=== PATIENT | male | born 1945 | race Caucasian/White ===

== ENCOUNTER → 2017-05-12 | Outpatient (CLI) | payer BC ==
[~2017-05-12] MED LIST: ADULT LOW DOSE81 MG PO; CHOLESTEROL MED; CRESTOR10 MG PO; EFFIENT10 MG PO; FERROUS GLUCON325 M4 PO; HTN MED; LIPITOR20 MG PO; LOPRESSOR 50 MG50 M1 PO; LORTAB 5 MG/5001 TA1 PO; NITROGLYCERIN0.4 MG SL; PERCOCET 5-3251 EACH PO; TOPROL XL50 MG PO
--- NOTE | 2017-05-12 13:32 | EXE ---
[place] [address] STRESS ECHOCARDIOGRAM Name: KELSI PADILLA Kaitlin Room: [facility]#: [id number] Admission: 05/12/17 Attend Phys: Papito Arriola MD Discharge: Date of : 41 Date of Service: 05/12/17 1332 Report #: [id number] THIS REPORT FOR: //name// APPROVED REPORT Exam: Dobutamine Stress Echo Indication: CAD Patient Location: Out-Patient Stress Nurse: Alicia Kamara RN Supervising Physician: Papito Arriola MD Status: routine Ht: 5 ft 10 in HR: 60 bpm BP: 137/79 mmHg Medical History Medical History: CAD s/p CABG Cardiac Risk Factors: HTN, Hyperlipidemia Procedure The patient underwent a Pharmacological Stress Test using Dobutamine. Blood pressure, heart rate, and EKG were monitored. An Echocardiogram was performed by chemical lab technician in four stages in quad fashion. At peak stress, four selected images were obtained and placed side by side with resting images for comparison. Stress Test Details Stress Test: Pharmacological Stress Test using Dobutamine. Reason for pharmacologic stress test: physical limitation. HR Resting HR: 60 bpm Max Heart Rate (APMHR): 146 bpm Max HR Achieved: 130 bpm Target HR (85% APMHR): 124 bpm % of APMHR: 89 Recovery HR: 86 bpm HR response to stress: Normal HR response to stress BP Resting BP: 137/79 mmHg Max BP: 148/103 mmHg Recovery BP: 159/86 mmHg ECG Resting ECG: Sinus Rhythm, RBBB Stress ECG: Sinus Rhythm, [place] [address] STRESS ECHOCARDIOGRAM Name: RANDYKELSI J Room: [facility]#: [id number] Admission: 05/12/17 Attend Phys: Papito Arriola MD Discharge: Date of : 41 Date of Service: 05/12/17 1332 Report #: [id number] Maximum ST Deviation: 0 mm Arrhythmia: VPC's Recovery ECG: Sinus Rhythm, RBBB Recovery ST Deviation: 0 mm Recovery Arrhythmia: VPC Clinical Reason for Termination: Completed protocol Pre-Stress Echo The resting Echocardiogram showed normalabnormal left ventricular contractility with an estimated Ejection Fraction of about 50-55%. The resting Echocardiogram demonstrated wall motion abnormality in the basal inferior wall. moderate hypokinesis Post-Stress Echo The stress Echocardiogram showed abnormal left ventricular contractility with an estimated Ejection Fraction of about 65-70%. The stress Echocardiogram demonstrated wall motion abnormality in the inferior wall. mild hypokinesis Conclusion Clinical Response: Non-ischemic Stress ECG Response: Indeterminant Stress Echo Images: Non-ischemic low risk stress echo for future cardiac events Other Information Study Quality: Good <Conclusion> low risk stress echo for future cardiac events <ELECTRONICALLY SIGNED> By: Papito Arriola MD, FACC 05/12/171331 31 31 Papito Arriola MD, FACC /INF
== END ==
LOC: M.ULTRA 04-28 11:34 → M.CRD 11:00
DX: I25.10 Atherosclerotic heart disease of native coronary artery without angina pectoris (principal); G45.9 Transient cerebral ischemic attack, unspecified; R09.89 Other specified symptoms and signs involving the circulatory and respiratory systems

== ENCOUNTER → 2020-01-29 | Outpatient (CLI) | payer BC ==
--- NOTE | 2020-01-29 15:11 | 2DMMODE ---
[place] [address] 2 D/M-MODE ECHOCARDIOGRAM Name: KELSI PADILLA Kaitlin Room: [facility]#: [id number] Admission: 01/29/20 Attend Phys: Juan M Rodrigues, Discharge: Date of : 41 Date of Service: 01/29/20 1510 Report #: [id number] THIS REPORT FOR: cc: KEMI VAUGHAN MD, CHADWICK MD Blick, David R. MD [facility] ~ APPROVED REPORT Study performed: 01/29/2020 13:22:28 EXAM: Comprehensive 2D, Doppler, and color-flow Echocardiogram Patient Location: Out-Patient BSA: 2.01 HR: 76 bpm BP: 145/88 mmHg Other Information Study Quality: Fair Indications CAD 2D Dimensions IVSd: 14.53 (7-11mm) LVOT Diam: 20.36 (18-24mm) LVDd: 50.70 mm PWd: 12.02 (7-11mm) Ascending Ao: 32.37 (22-36mm) LVDs: 34.73 (25-40mm) Aortic Root: 35.30 mm Volumes Left Atrial Volume (Systole) LA ESV Index: 28.80 mL/m2 Aortic Valve AoV Peak Сергей.: 1.27 m/s AO Peak Gr.: 6.46 mmHg LVOT Max P.01 mmHg AO Mean Gr.: 3.85 mmHg LVOT Mean P.99 mmHg LVOT Max V: 1.00 m/s AO V2 VTI: 25.49 cm LVOT Mean V: 0.65 m/s RDAHA (VTI): 2.72 cm2 LVOT V1 VTI: 21.26 cm Mitral Valve E/A Ratio: 0.83 [place] [address] 2 D/M-MODE ECHOCARDIOGRAM Name: KELSI PADILLA Room: [facility]#: [id number] Admission: 01/29/20 Attend Phys: Juan M Rodrigues, Discharge: Date of : 41 Date of Service: 01/29/20 1510 Report #: [id number] MV Decel. Time: 242.42 ms MV E Max Сергей.: 0.77 m/s MV PHT: 70.30 ms MVA (PHT): 3.13 cm2 TDI E/Lateral E': 6.42 E/Medial E': 9.63 Medial E' Сергей.: 0.08 m/s Lateral E' Сергей.: 0.12 m/s Pulmonary Valve PV Peak Сергей.: 0.97 m/s PV Peak Gr.: 3.79 mmHg Tricuspid Valve RAP Estimate: 5.00 mmHg TR Peak Gr.: 31.35 mmHg RVSP: 36.35 mmHg PA Pressure: 36.35 mmHg Left Ventricle The left ventricle is normal size. There is normal LV segmental wall motion. Mild concentric left ventricular hypertrophy. Left ventricular systolic function is normal. The left ventricular ejection fraction is within the normal range. LVEF is 50-55%. Grade I - abnormal relaxation pattern. Right Ventricle The right ventricle is normal size. The right ventricular systolic function is normal. Atria Left atrium is mildly dilated. The right atrium size is normal. Aortic Valve The aortic valve is normal in structure. Trace aortic regurgitation. There is no aortic valvular stenosis. Mitral Valve The mitral valve is normal in structure. There is no mitral valve regurgitation noted. No evidence of mitral valve stenosis. Tricuspid Valve The tricuspid valve is normal in structure. Mild tricuspid regurgitation. estimated pa pressure 40 [place] [address] 2 D/M-MODE ECHOCARDIOGRAM Name: KELSI PADILLA Kaitlin Room: [facility]#: [id number] Admission: 01/29/20 Attend Phys: Juan M Rodrigues, Discharge: Date of : 41 Date of Service: 01/29/20 1510 Report #: [id number] The pulmonary valve is normal in structure. There is no pulmonic valvular regurgitation. Great Vessels The aortic root is normal in size. IVC is normal in size and collapses >50% with inspiration. Pericardium There is no pericardial effusion. <Conclusion> Mild concentric left ventricular hypertrophy. LVEF is 50-55%. Left atrium is mildly dilated. Mild tricuspid regurgitation. estimated pa pressure 40 mm hg <ELECTRONICALLY SIGNED> By: Papito Arriola MD, FACC 01/29/201509 09 09 Papito Arriola MD, FACC /INF
--- NOTE | 2020-01-30 08:01 | CARDNUC ---
[place] [address] CARDIAC NUCLEAR IMAGING REPORT Name: RANDYKELSI Kaitlin Room: [facility]#: [id number] Admission: 01/29/20 Attend Phys: Juan M Rodrigues, Discharge: Date of : 41 Date of Service: 01/30/20 0801 Report #: [id number] THIS REPORT FOR: cc: KEMI VAUGHAN MD, CHADWICK MD Liston, Michael J. MD [facility] ~ APPROVED REPORT Study performed: 01/29/2020 14:40:29 Exam: Nuclear Stress Test Indication: Abnormal EKG, Pre-Op clearance. Patient Location: Out-Patient Stress Tech: Elena Gandara Stress Nurse: Lorenza Bustos R.N. NM Tech:MELIA Rea Ht: 5 ft 9 in Wt: 187 lbs BSA: 2.01 m2 BMI: 27.61 Medical History Medical History: ABN EKG, RBBB, SB, PVC's, Carotid Bruit, Knee pain pending surgery, CAD s/p ME, CAD s/p CABG, CAD s/p stent, HTN, Hyperlipidemia, former smoker, uses cane to ambulate/stability. Medications: Amlodipine, ASA 81 Mg, Lisinopril, Metoprolol Tartrate, Rosuvastatin. Allergies: No known drug allergies Cardiac Risk Factors: Age, FHX of CAD, HTN, Hyperlipidemia, Past Smoker, RBBB, Carotid Bruit, SB, PVC's. Previous Cardiac Procedures: Myocardial infarction, CABG, PCI. Pretest Chest Pain Characteristics: No chest pain Exercise History: Sedentary Physical Disabilities: Knee pain pending surgery, uses cane to ambulate/stabillity. Meds Held (24 hrs): Metoprolol Tartrate. Stress Test Details Stress Test: Pharmacologic stress testing performed using 0.4 mg of regadenoson per 5 mL given IV over 10 seconds. Reason for pharmacologic stress test: Knee pain pending surgery, uses cane to ambulate/[place] [address] CARDIAC NUCLEAR IMAGING REPORT Name: KELSI PADILLA Room: [facility]#: [id number] Admission: 01/29/20 Attend Phys: Juan M Rodrigues, Discharge: Date of : 41 Date of Service: 01/30/20 0801 Report #: [id number] Resting HR: 75 bpm Max Heart Rate (APMHR): 143 bpm Max HR Achieved: 113 bpm Target HR (85% APMHR): 121 bpm % of APMHR: 79 Recovery HR: 94 bpm BP Resting BP: 161/82 mmHg Max BP: 177/89 mmHg ECG Resting ECG: Sinus Rhythm, RBBB Stress ECG: Sinus tachycardia, RBBB ST Change: None Arrhythmia: VPC's Recovery ECG: Sinus Rhythm Recovery ST Change: None Recovery Arrhythmia: VPC's Clinical Reason for Termination: Completed protocol Stress Symptoms: No symptoms voiced. Exercise duration: 00 min 00 sec Exercise capacity: 1.00 METs Patient tolerated Lexiscan infusion without significant cardiac symptoms. Nurse Comments A 75 year old male presented for a sitting Lexiscan r/t ABN EKG, CAD s/p ME, PCI, CABG and Pre-Op clearance. Test well tolerated. Recovery unremarkable. Patient was escorted to Nuclear Medicine for imaging. Patient was stable and stated he felt good at that time. Stress ECG Conclusion The baseline twelve-lead EKG shows sinus rhythm with right bundle branch block and unifocal premature ventricular contractions. EKGs obtained during and post Lexiscan infusion show sinus rhythm and sinus tachycardia with no significant ST segment changes when compared to baseline. There were frequent unifocal premature ventricular contractions noted. NM EXAM: Myocardial Perfusion REST/STRESS Imaging Protocol: Rest Tc-99m/Stress Tc-99m 1 day Resting Data Rest SPECT myocardial perfusion imaging was performed in supine position 30 minutes following the intravenous injection of 10[place]2 [place] [address] CARDIAC NUCLEAR IMAGING REPORT Name: KELSI PADILLA Room: [facility]#: [id number] Admission: 01/29/20 Attend Phys: Juan M Rodrigues, Discharge: Date of : 41 Date of Service: 01/30/20 0801 Report #: [id number] of Tc-99m Sestamibi. Time of rest injection: 1240 Date: 01/29/2020 The images were gated to evaluate regional wall motion and calculate left ventricular ejection fraction. Administration Route: IV Administration Site: Right AC Pharmacologic Stress Pharmacologic stress test was performed by injecting Regadenoson 0.4 mg IV push followed by the intravenous injection of 34.5 mCi of Tc-99m Sestamibi. Time of stress injection: 1430 Date: 01/29/2020 Administration Route: IV Administration Site: Right AC Gated Stress SPECT was performed 40 minutes after stress injection. The images were gated to evaluate regional wall motion and calculate left ventricular ejection fraction. Prone imaging was performed. Study Quality Study: Good Artifact: No artifact Study Data At rest, the left ventricular ejection fraction was 47%.. Post stress, the left ventricular ejection was 52%.. TID = 0.93. Perfusion There is a moderate size severe intensity fixed defect involving the basal to distal inferior wall. There is a focal fixed apical defect. No significant reversible defects are identified. Wall Motion The region of the basal to mid inferior and inferoseptal wall appears severely hypokinetic to akinetic. Global LV systolic function appears mildly decreased. Nuclear Conclusion ECG Findings: non-diagnostic Clinical Findings: negative for ischemia Nuclear Findings: negative for ischemia Exercise Capacity: not assessed Left Ventricular Function: abnormal Myocardial perfusion study suggest prior [place] [address] CARDIAC NUCLEAR IMAGING REPORT Name: KELSI PADILLA [id number] Admission: 01/29/20 Attend Phys: Juan M Rodrigues, Discharge: Date of : 41 Date of Service: 01/30/20800 Report #: [id number] distal inferior wall and a focal apical infarct. No evidence of inducible ischemia was identified. Global LV systolic function is mildly decreased. This is not a high risk study. <Conclusion> The baseline twelve-lead EKG shows sinus rhythm with right bundle branch block and unifocal premature ventricular contractions. EKGs obtained during and post Lexiscan infusion show sinus rhythm and sinus tachycardia with no significant ST segment changes when compared to baseline. There were frequent unifocal premature ventricular contractions noted. <ELECTRONICALLY SIGNED> By: Juan M Rodrigues MD, FACC 01/30/20800 0 0 Juan M Rodrigues MD, FACC /INF
== END ==
LOC: M.CRD 01-22 11:48 → M.NUC 08:00 → M.CRD 11:00 → M.NUC 12:11
PROVIDERS: ATTEND Internal Medicine Cardiovascular Disease
DX: Z01.818 Encounter for other preprocedural examination (principal); I25.10 Atherosclerotic heart disease of native coronary artery without angina pectoris; I07.1 Rheumatic tricuspid insufficiency